=== PATIENT | male | born 1975 | race Caucasian/White ===

== ENCOUNTER 2017-12-09 12:20 | Outpatient (REF) | payer OTHER, SELFPAY ==
[2017-12-09 23:24] LABS: ALT 54 U/L (12-78); AST 30 U/L (15-37); Alkaline Phosphatase 84 U/L (46-116); Anion Gap 10.3 mmol/L (3-11); BUN 18 mg/dL (7-18); Bilirubin, Total 0.6 mg/dL (0.2-1.0); CO2 25.7 mmol/L (21.0-32.0); CREATININE 1.02 mg/dL (0.70-1.30); Chloride 104 mmol/L (98-107); Cholesterol 214 mg/dL (50-200); Glucose 96 mg/dL (70-100); HDL Cholesterol 44 mg/dL (40-60); LDL CHOLESTEROL 119 mg/dL (<100); Potassium 4.4 mmol/L (3.5-5.1); Sodium 140 mmol/L (136-145); Total Protein 7.3 g/dL (6.4-8.2); Triglyceride 379 mg/dL (30-150)
[2017-12-09 23:40] LABS: Hemoglobin A1C 5.6 % (4.5-6.2)
[2017-12-11 11:22] LABS: Lyme Ab w Rflx to Lyme Confirm Negative
[2017-12-12 01:04] LABS: Anaplasma phagocytophilum Negative (Negative); B. miyamotoi PCR Negative (Negative); Babesia divergens/MO-1 Negative (Negative); Babesia duncani Negative (Negative); Babesia microti Negative (Negative); Ehrlichia chaffeensis Negative (Negative); Ehrlichia ewingii/canis Negative (Negative); Ehrlichia muris eauclairensis Negative (Negative)
== END 2017-12-09 12:40 ==
LOC: NCHCN 12:20
PROVIDERS: PCP Family Medicine; Visit Provider Physician Assistant Medical
DX: Z00.00 Encounter for general adult medical examination without abnormal findings (principal); R81 Glycosuria; E78.1 Pure hyperglyceridemia; T14.8XXA Other injury of unspecified body region, initial encounter
CPT/HCPCS: 80053; 80061; 83721; 83036; 86618; 87798

== ENCOUNTER 2020-01-23 21:17 | Day surgery (SDC) | payer OTHER, SELFPAY ==
[2020-01-23 21:20] VITALS: BP 135/96; PULSE 100; RESP 16; TEMP 36.2; O2SAT 94
--- NOTE | 2020-01-23 21:28 | ED.GENADUL_ITS ---
Discharge Plan Disposition Patient Disposition: OTHER Condition: Stable Discharge Details Clinical Impression: Esophageal foreign body Primary Care Provider: Orin Carballo V ED Provider: Marium Mehta Discharge Data Discharge Date/Time-TO BE ENTERED AT DEPARTURE: 01/24/20 01:30 Medical Decision Making <Marium Mehta - Last Filed: 01/26/20 08:21> 44-year-old male presents to the ED with foreign body sensation in throat. This occurred approximately 1 hours ago while eating some pork. He does feel like he has something stuck in his throat and is having difficulty swallowing his saliva. He is spitting up his secretions in the room. He is able to speak had a soft voice. He also reports some shortness of breath. Lung sounds are clear, no foreign body visualized in the posterior oropharynx. No stridor auscultated initially. 2129: We will attempt effervescent flurries p.o. to hopefully dislodge foreign body if this does not work we will do imaging and possibly consult with general surgery for endoscopy. 3: Easy gas effervescent flurries given p.o. x2 which were unsuccessful to dislodge foreign body. Patient states he still has the foreign body sensation in his throat. General surgery paged. 2149: Spoke with Dr. Kiran regarding patient, she does not recommend imaging at this time. Discussed patient case and details. Labs at this time are pending and IV started. Glucagon not given because according to up to date it is not recommended as it is ineffective and has increased side effects. PROCEDURE INFORMATION: Exam: CT Neck Without Contrast Exam date and time: 01/23/2020 10:21 PM Age: 44 years old Clinical indication: Dysphagia / difficulty swallowing and other: ? Throat fb; Patient HX: PT believes he has a piece of pork stuck in his throat, unable to swallow COMPARISON: No relevant prior studies available. FINDINGS: Nasopharynx: Symmetric soft tissue prominence posteriorly narrowing airway. Oropharynx: Unremarkable. No significant tonsillar enlargement. Hypopharynx: Unremarkable. Larynx: Soft tissue foreign body suspected at level of larynx narrowing airway.. Normal epiglottis. Retropharyngeal space: Unremarkable. Submandibular/Parotid glands: Normal. Glands are normal in size. Thyroid: Normal. No enlarged or calcified nodules. Lymph nodes: Unremarkable. No lymphadenopathy. Trachea: Visualized trachea is unremarkable. Lungs: Unremarkable as visualized. Bones/joints: Unremarkable. No acute fracture. Soft tissues: Unremarkable. No significant soft tissue swelling. IMPRESSION: 1. Abnormal soft tissue density at level of larynx, consistent with meat, narrowing airway. 2. Symmetric prominence of posterior nasopharyngeal soft tissues narrowing nasopharyngeal airway. Thank you for allowing us to participate in the care of your patient. Dictated and Authenticated by: Regan Beck DO Dr. Lahey called [facility] to clarify where foreign body is located. [facility] radiologist reported FB in airway. [facility] Called for ED transfer for bronchoscopy for possible foreign body in airway. 2347: Spoke with [facility] ENT on-call Dr. Franco regarding patient she was personally able to view the CT. She will speak with her attending physician call me back. Plan is to transfer patient to [facility] for bronchoscopy. Did speak with patient's significant other at patient's request and discussed 0025: On phone with ENT at [facility] and Dr. Beck DO with [facility] regarding CT, Dr. Franco with ENT Dr. Beck speaking with ENT doc and he reports that he will make an addendum and he does see the fluid air levels in the esophagus versus the larynx. At this time is my understanding that there is no foreign body within the airway. 00 35: Spoke once again with Dr. Kiran with general surgery regarding recent developments and at this time I do feel that the clinical picture of the patient is more consistent with an esophageal foreign body. Patient is speaking, O2 sat is 96% on room air, he is not stridorous. He has been observed in the ER for over 3 hours at this time. Discussed plan with patient and care is to be signed out to ER attending Dr. Sosa pending transfer to the OR for foreign body removal. <Frank Sosa MD - Last Filed: 01/24/20 01:22> pt seen by Dr. Bowling who is brining to the OR, pt remains stable without stridor or drooling HPI <Marium Mehta - Last Filed: 01/26/20 08:21> General Mode of arrival: ambulatory . Date/Time Provider Initiated Documentation: 01/23/20 21:19 . Limitations to Documentation: no limitations . Information obtained by: patient . HPI Narrative: 44-year-old male presents to the ED with foreign body sensation in throat. This occurred approximately 1 hours ago while eating some pork. He does feel like he has something stuck in his throat and is having difficulty swallowing his saliva. He is spitting up his secretions in the room. He is able to speak had a soft voice. He also reports some shortness of breath. Lung sounds are clear, no foreign body visualized in the posterior oropharynx. No stridor auscultated initially. Related Data Home Medications Medication Instructions Recorded Confirmed aspirin 81 mg PO DAILY 01/23/20 01/23/20 omeprazole 40 mg PO DAILY #14 cap 01/24/20 Previous Rx's Medication Instructions Recorded omeprazole 40 mg PO DAILY #14 cap 01/24/20 Allergies Allergy/AdvReac Type Severity Reaction Status Date / Time cat dander Allergy Anaphylaxsi Unverified 01/23/20 21:33 s dog dander Allergy Anaphylaxsi Unverified 01/23/20 21:33 s General Stated Complaint: ThroatFB TAVIA: 3 Review of Systems <Mariumtamie Mehta - Last Filed: 01/26/20 08:21> Narrative: Constitutional: Negative for weight loss, alert and oriented, well groomed, normal body habitus, appears comfortable. HEENT: Denies trauma, headaches, blurry vision, nasal discharge. Positive trouble swallowing. Chest: Denies chest pain, palpitations, irregular rhythm, hypertension. Respiratory: Reports mild Shortness of breath, Denies cough, hemoptysis. GI: Denies abdominal pain, diarrhea, constipation. Positive nausea : Denies dysuria, hematuria, flank pain, rectal bleeding. Neuro: Denies dizziness, blurry vision, weakness, syncope, headache or facial numbness. Hematologic: Denies easy bruising, intolerance to heat or cold, hair loss. [facility] <Marium Mehta - Last Filed: 01/26/20 08:21> Medical History (Updated 01/24/20 @ 01:35 by Lisset Kiran MD) No active medical problems Surgical History (Updated 01/24/20 @ 01:35 by Lisset Kiran MD) No history of previous surgery Social History (Updated 01/24/20 @ 01:35 by Lisset Kiran MD) Smoking/Tobacco Use Status: Never Alcohol Intake: current Alcohol Intake frequency: a few times a week Alcohol type: beer Substance use type: does not use Do you feel safe at home: Yes Do you feel safe in your relationship?: Yes Exam <Marium Mehta - Last Filed: 01/26/20 08:21> Narrative Exam Narrative: Constitutional: Alert and oriented x3. Appears stated age. Normal body habitus. Patient is continuously spitting up saliva and is unable to handle his secretions at this time. Head: Normocephalic, no trauma. Eyes: Pupils PERRLA, Red reflex noted, EOM's intact. Eyelids symmetrical without lesions, discharge, or swelling. ENT: Bilateral TM's WNL, External ear normal to inspection, no mastoid TTP, swelling, or erythema, Nasal turbinates WNL, no nasal discharge. Normal dentition, Posterior pharynx mildly erythemic, no visualized foreign body to the posterior pharynx. No stridor auscultated. Chest: RRR, Normal S1, S2, distal pulses intact. Resp: Lungs clear to auscultation bilaterally, no wheezes, rales, or rhonchi. Musculoskeletal: Normal gait, 5/5 strength to all four extremities. Skin: No suspicious rashes or lesions. Capillary refill less than 2 sec. Neurologic: Cranial nerves II-XII intact. Alert and oriented x 3. DTR's intact. Hematologic/Lymphatic: No ecchymosis, no lymphadenopathy. Course <Marium Mehta - Last Filed: 01/26/20 08:21> Vital Signs Vital signs: Vital Signs Temperature 36.2 C L 01/23/20 21:20 Pulse 100 H 01/23/20 21:20 Respiratory Rate 16 01/23/20 21:20 Blood Pressure 135/96 H 01/23/20 21:20 Pulse Oximetry 94 01/23/20 21:20 Temperature 36.2 C L 01/23/20 21:20 Temperature Source Skin 01/23/20 21:20 Pulse 100 H 01/23/20 21:20 Respiratory Rate 16 01/23/20 21:20 Blood Pressure 135/96 H 01/23/20 21:20 Blood Pressure Position Sitting 01/23/20 21:20 Pulse Oximetry 94 01/23/20 21:20 Oxygen Delivery Method Room Air 01/23/20 21:20 Oxygen Flow Rate 0 01/23/20 21:20
[2020-01-23] MEDS: Simethicone/Sod Bicarb/Cit Ac, 4 gram PACKET 1 PACKET PO (21:32)
[2020-01-23 21:52] LABS: Abs Immature Grans 0.04 10^3/uL (0.0-0.06); Absolute Basophil Count 0.07 10^3/uL (0.0-0.2); Absolute Eosinophil Count 0.37 10^3/uL (0.0-0.7); Absolute Monocyte Count 0.92 10^3/uL (0.1-0.8); Absolute Neutrophil Count 8.07 10^3/uL (1.2-6.7); Basophils % 0.6; Eosinophils % 3.1; HCT 51.2 % (40.0-50.0); HGB 17.3 g/dL (13.5-17.5); Immature Grans % 0.3; Lymphocytes % 21.5; MCH 28.5 pg (27.0-33.0); MCHC 33.8 % (32.0-36.0); MCV 84.3 fL (80-95); MPV 9.3 fL (8.0-11.0); Monocytes % 7.6; Neutrophils % 66.9; Nucleated RBC 0 %; Platelet Count 245 10^3/uL (130-400); RBC 6.07 10^6/uL (4.36-5.78); RDW 12.3 % (11.8-14.1); RDW-SD 36.9 fL; WBC 12.07 10^3/uL (4.4-10.8)
--- NOTE | 2020-01-23 22:00 | DI.CT_ITS ---
EXAM: CT NECK WO CLINICAL HISTORY: Retained foreign body. TECHNIQUE: Imaging Protocol: Axial computed tomography images with coronal and sagittal reformatted images were created and reviewed CONTRAST MATERIAL: Noncontrast COMPARISON: No exams were available for comparison FINDINGS: Parotids/submandibular/thyroid gland: Normal. Lymphadenopathy: There is scattered lymph nodes seen along the level one to level three all measurin g less than 8 mm in short axis diameter which are physiologic in nature. Soft tissues: The floor the mouth is unremarkable. The epiglottis and vocal cords are within normal limits. There is debris in the upper esophagus at the level of the aortic arch. The esophagus is di lated and air-filled superior to this level. Images through both lung apices are unremarkable. No foreign body is seen in the visualized portions of the airway. Bones: Degenerative disc changes. Sinuses: Mucous retention cysts in both maxillary sinuses. IMPRESSION: Debris consistent with ingested food in the upper esophagus. No airway foreign body is seen. RADIATION DOSE DELIVERED: 1,100.57mGy.cm Total DLP DATA REPOSITORY: All CT scans at this facility are submitted to the National Radiology Data Registry (NRDR) Dose Index Registry (DIR) with the [employer] (A[employer]). RADIATION OPTIMIZATION: All CT scans at this facility use at least one of these dose optimization te chniques: automated exposure control; mA and/or kV adjustment per patient size (includes targeted exa ms where dose is matched to clinical indication); or iterative reconstruction.
[2020-01-23 22:05] LABS: ALT 45 U/L (16-63); AST 26 U/L (15-37); Albumin 4.3 g/dL (3.4-5.0); Alkaline Phosphatase 81 U/L (46-116); Anion Gap 7.1 mmol/L (3-11); BUN 18 mg/dL (7-18); Bilirubin, Total 0.5 mg/dL (0.2-1.0); CO2 27.9 mmol/L (21.0-32.0); CREATININE 1.13 mg/dL (0.70-1.30); Calcium 9.3 mg/dL (8.5-10.1); Chloride 103 mmol/L (98-107); Glucose 101 mg/dL (74-106); Potassium 4.2 mmol/L (3.5-5.1); Sodium 138 mmol/L (136-145)
[2020-01-23 22:07] LABS: Prothrombin Time 9.8 sec (9.3-11.0)
[2020-01-23 22:27] VITALS: BP 132/87; PULSE 90; RESP 16; O2SAT 95
--- NOTE | 2020-01-23 22:42 | DI.VRAD_ITS ---
Addendum created by Regan Beck DO on 01/24/2020 12:34:30 AM EDT: Study reviewed again at request of staff at ordering facility and discussed in conference call with Ms. Mehta and others at approximately 12:30 a.m. on January 23. Reportedly the patient's respiratory status remains stable without difficulty speaking or . Air-fluid level in upper thoracic esophagus suspected by staff at the site, is confirmed on additional review of the study and there appears to be what may be an impacted food bolus just below the air-fluid level, series 3 images 1-20. Reportedly, patient is able to take sips of fluid but was unable to tolerate administration of effervescent granules. GI consultation was recommended. Addendum created by Regan Beck DO on 01/23/2020 11:18:53 PM EDT: Case discussed, additional history obtained and findings clarified in discussion with Dr. Sosa at approximately 11:15 p.m. on January 22. Suspected piece of meat is within the airway at level of larynx. Reportedly, patient is not in respiratory distress and is able to talk. ENT or pulmonary consultation recommended for retrieval of the foreign body. Initial report created on 01/23/2020 10:42:37 PM EDT: PROCEDURE INFORMATION: Exam: CT Neck Without Contrast Exam date and time: 01/23/2020 10:21 PM Age: 44 years old Clinical indication: Dysphagia / difficulty swallowing and other: ? Throat fb; Patient HX: PT believes he has a piece of pork stuck in his throat, unable to swallow TECHNIQUE: Imaging protocol: Computed tomography images of the neck without contrast. Radiation optimization: All CT scans at this facility use at least one of these dose optimization techniques: automated exposure control; mA and/or kV adjustment per patient size (includes targeted exams where dose is matched to clinical indication); or iterative reconstruction. COMPARISON: No relevant prior studies available. FINDINGS: Nasopharynx: Symmetric soft tissue prominence posteriorly narrowing airway. Oropharynx: Unremarkable. No significant tonsillar enlargement. Hypopharynx: Unremarkable. Larynx: Soft tissue foreign body suspected at level of larynx narrowing airway.. Normal epiglottis. Retropharyngeal space: Unremarkable. Submandibular/Parotid glands: Normal. Glands are normal in size. Thyroid: Normal. No enlarged or calcified nodules. Lymph nodes: Unremarkable. No lymphadenopathy. Trachea: Visualized trachea is unremarkable. Lungs: Unremarkable as visualized. Bones/joints: Unremarkable. No acute fracture. Soft tissues: Unremarkable. No significant soft tissue swelling. IMPRESSION: 1. Abnormal soft tissue density at level of larynx, consistent with meat, narrowing airway. 2. Symmetric prominence of posterior nasopharyngeal soft tissues narrowing nasopharyngeal airway. Dictated and Authenticated by: Regan Beck MD. Ordering:IMMANUEL Causey MD
[2020-01-23 23:32] VITALS: BP 140/88; PULSE 87; RESP 14; TEMP 36.7; O2SAT 96
[2020-01-24] VITALS (15 sets, daily range): BP systolic 113–138; BP diastolic 74–96; PULSE 73–97; RESP 14–21; TEMP 36.5–36.8; O2SAT 95–99
--- NOTE | 2020-01-24 01:31 | W.PREOPHP ---
Date of service: 01/24/20 Time of Service: 01:31 Assessment and Plan Assessment and plan (1) Esophageal foreign body: Status: Acute Assessment and plan: A\\ 44 year old male with an esophageal foreign body since approximately 19:30 last night. Discussed EGD with removal of foreign body P\\ EGD Risks, benefits, complications of the procedure were reviewed with him. Complications include: Limited to bleeding, pain, injury to the esophagus stomach, aspiration with subsequent bronchitis or pneumonia, sore throat and adverse reaction to medications. Questions were entertained and answered to his satisfaction and he wished to proceed. No guarantees were given or implied. History of Present Illness History of Present Illness Chief Complaint: esophageal foreign body Consults Consult date: 01/23/20 Requesting physician: Marium Mehta Narrative: 44-year-old male presents to the ED with foreign body sensation in throat. This occurred approximately at 19:30 last night while eating some pork. He does feel like he has something stuck in his throat and is having difficulty swallowing his saliva. He is spitting up his secretions in the room. He is able to speak had a soft voice. He also reports some shortness of breath. Lung sounds are clear, no foreign body visualized in the posterior oropharynx. No stridor auscultated initially. Effervecents were attempted x [address] scan was then done which initailly was read as foreign body in the larynx. CT was pushed to [facility] reviewed the images and noted that the foreign body was in the esophagus. Patient has some chest discomfort behind the sternum. No SOB, Stridor or other breathing difficulties. he is otherwise healthy without a Cardiac history Review of Systems Cardiovascular Cardiovascular: Denies chest pain, Denies chest pain at rest, Denies irregular heart rhythm, Denies dyspnea and Denies dyspnea on exertion Respiratory Respiratory: Reports cough, Denies dyspnea and Denies dyspnea on exertion Gastrointestinal Gastrointestinal: Reports as per HPI Genitourinary Genitourinary: Denies dysuria, Reports urinary incontinence and Denies urinary urgency Endocrine Endocrine: Reports system reviewed and no additional complaints, except as documented Hematologic/Lymphatic Hematologic/Lymphatic: Denies easy bruising and Denies lymphadenopathy [facility] Medical History (Updated 01/24/20 @ 01:35 by Lisset Kiran MD) No active medical problems Surgical History (Updated 01/24/20 @ 01:35 by Lisset Kiran MD) No history of previous surgery Social History (Updated 01/24/20 @ 01:35 by Lisset Kiran MD) Smoking/Tobacco Use Status: Never Alcohol Intake: current Alcohol Intake frequency: a few times a week Alcohol type: beer Substance use type: does not use Do you feel safe at home: Yes Do you feel safe in your relationship?: Yes Meds Home Medications and Allergies Home Medications Medication Instructions Recorded Confirmed Type aspirin 81 mg PO DAILY 01/23/20 01/23/20 History Allergies Allergy/AdvReac Type Severity Reaction Status Date / Time cat dander Allergy Anaphylaxsi Unverified 01/23/20 21:33 s dog dander Allergy Anaphylaxsi Unverified 01/23/20 21:33 s Exam Const General: cooperative, comfortable and no acute distress Orientation: alert and oriented x3 HENMT Head: normocephalic and atraumatic Resp Effort & Inspection: normal respiratory effort Auscultation: clear to auscultation bilaterally Cardio Rate: regular rate Rhythm: regular rhythm Heart Sounds: no gallops, no murmurs and no rubs GI Palpation: soft Results Labs Result diagrams: 01/23/20 21:45 01/23/20 21:45 Labs: Laboratory Results - last 24 hr 01/23/20 01/23/20 01/23/20 21:45 21:45 21:45 WBC 12.07 H RBC 6.07 H Hgb 17.3 Hct 51.2 H MCV 84.3 MCH 28.5 MCHC 33.8 RDW 12.3 Plt Count 245 MPV 9.3 Immature Gran % 0.3 Neutrophils % 66.9 Lymphocytes % 21.5 Monocytes % 7.6 Eosinophils % 3.1 Basophils % 0.6 Nucleated RBC % 0 Absolute Neutrophils 8.07 H Absolute Lymphocytes 2.60 Absolute Monocytes 0.92 H Absolute Eosinophils 0.37 Absolute Basophils 0.07 PT 9.8 INR 1.0 Sodium 138 Potassium 4.2 Chloride 103 Carbon Dioxide 27.9 Anion Gap 7.1 BUN 18 Creatinine 1.13 Estimated GFR/1.73 m2 >= 60.00 Glucose 101 Calcium 9.3 Total Bilirubin 0.5 AST 26 ALT 45 Alkaline Phosphatase 81 Total Protein 8.0 Albumin 4.3 Last Vital Signs Temp 98.1 F 10/18/20 23:32 Pulse 85 01/24/20 01:08 Resp 14 01/24/20 01:08 BP 131/82 01/24/20 01:08 Pulse Ox 95 01/24/20 01:08
[2020-01-24] MEDS: Lactated Ringers 1,000 ML 30 ML IV (01:41)
--- NOTE | 2020-01-24 02:00 | W.PM.ENDDOP ---
Date of service: 01/24/20 Time of Service: 02:00 Endoscopy Report DATE OF PROCEDURE: 01/24/20 PRE-OP DIAGNOSIS: Esophageal Foreign body POST-OP DIAGNOSIS: same PROCEDURE: EGD with removal of foreign body SURGEON: Lisset Kiran ANESTHESIA: GETA (ASA 2/Surinder Garcia, KELSI) ESTIMATED BLOOD LOSS: 0 PATHOLOGY: none sent COMPLICATIONS: None DISPOSITION: other (ER) INDICATIONS: 44-year-old male presents to the ED with foreign body sensation in throat. This occurred approximately at 19:30 last night while eating some pork. He does feel like he has something stuck in his throat and is having difficulty swallowing his saliva. He is spitting up his secretions in the room. He is able to speak had a soft voice. He also reports some shortness of breath. Lung sounds are clear, no foreign body visualized in the posterior oropharynx. No stridor auscultated initially. Effervecents were attempted x 2 as well as soda. FINDINGS: Piece of pork chop stuck in the mid-esophagus Inflammation noted from mid-esophagus to distal esophagus. PROCEDURE DESCRIPTION: After informed consent was obtained the patient was take to the operating room and placed in a supine position. Monitors were applied and a time out was done. The patients name, date of , procedure type, allergies to medications and metal in their body was reviewed. The patient was placed under general anesthesia and intubated. A bite block was placed. Once intubated the gastroscope was advanced through the oropharynx which was grossly normal into the esophagus. The proximal esophagus was normal. Scope was slowly advanced into the mid esophagus. Poor chart was identified. It was gently pushed down into the stomach without any difficulty. The stomach was quickly inspected there was some mild inflammation noted in the antrum. The scope was slowly retracted back into the distal esophagus where acute inflammation was identified. There were no gross signs of Myles's. Due to the acute inflammation I did not do any biopsies. The scope was removed and the patient was woken up, extubated and taken back to the ER in stable condition. Follow up: As needed. Will place patient on 2 weeks of Prilosec for the acute inflammation
--- NOTE | 2020-01-24 02:06 | W.PM.DSUDISC ---
Discharge Plan Disposition Patient Disposition: HOME Condition: Stable Discharge Details Reason For Visit: esophageal foreign body Attending Provider: Lisset Kiran Primary Care Provider: Orin Carballo V Home Meds and New Rx's Prescriptions: New omeprazole 40 mg capsule,delayed release(DR/EC) 40 mg PO DAILY Qty: 14 RF: 0 Continued aspirin 81 mg Tablet 81 mg PO DAILY RF: 0 Discharge Instructions Instructions: GI (Gastrointestinal) Soft Diet (ED) Additional Instructions: Findings: acute inflammation around the middle and distal esophagus New Medication: Please take Prilosec 40 mg daily for 2 weeks to help resolve the inflammation in your esophagus Diet: soft diet for the next 24 hours Please call if you develop: fevers >101.5 Nausea or Vomiting Abdominal pain that is not transient DAY SURGERY UNIT POST ENDOSCOPY INSTRUCTIONS 1. Because there will be medication in your system for the next 24 hours, you may feel a little sleepy. Your coordination will be affected. Therefore: a. Do not drive or operate dangerous equipment for 24 hours. b. Do not drink alcohol beverages for 24 hours (not even beer). c. Plan to go home and rest for the day. 2. Generally there are no restrictions on your activity after a day or so has gone by, but you may feel a bit fatigued for a few days. 3 After you arrive home you may have a light meal and return to a normal diet as you can tolerate it without feeling sick to your stomach. 4. After surgery, you may feel pain or discomfort. This should be only transient, but if it persists please contact your doctor. 5. If there are any questions regarding the findings of your procedure, please feel free to contact your doctor. 6. If you are unable to contact your doctor with a problem, contact the hospital at [phone]. 7. Continue all your regular medications unless directed otherwise. I understand the above instructions and have no questions. Signature of Patient or Responsible Adult Escort Date/Time Name of Responsible Adult Escort Signature of Nurse Date/Time Activity:: Activity as Tolerated Diet:: soft diet Discharge Orders Discharge Orders: Discharge Order (Routine); Ordered 01/24/20 Ordered By: Lisset Kiran DS: Diagnosis Discharge Diagnosis (1) Esophageal foreign body: Status: Acute
== END 2020-01-24 03:42 | disposition home or self-care (01) ==
LOC: ER 01-24 01:22 → SUR 01-24 01:26
PROVIDERS: Emergency Provider Registered Nurse Emergency; PCP Family Medicine; Visit Provider Surgery
PROC: 0DC68ZZ Extirpation of Matter from Stomach, Via Natural or Artificial Opening Endoscopic (ICD-10-PCS; CPT 43247; principal; 2020-01-24 01:15)
DX: T18.128A Food in esophagus causing other injury, initial encounter (principal)
CPT/HCPCS: 43247; 36415; 80053; 99222; 99285; 70490; 85025; 85610; 99284; J2001; J2250